=== PATIENT | male | born 1960 | race Caucasian/White ===

== ENCOUNTER 2017-03-20 20:40 | Emergency (ER) | payer BC ==
[2017-03-20 20:44] VITALS: BMI 33.5
--- NOTE | 2017-03-20 20:53 | PDOC ---
History of Present Illness <Aziza White - Last Filed: 03/20/17 22:31> - General History Source: Patient, Old Records, Primary Care Provider Exam Limitations: No Limitations - History of Present Illness Initial Comments: 03/20/17 21:42 The patient is a 57 year old male, with a significant past medical history of hypertension, brain aneurysm and intracranial hemorrhage (2008), who presents to the emergency department sent by PCP for evaluation. The patient had been experiencing persistent headaches over the past couple of days, worsening in the past 1-2 days. He reports that he saw his PCP, who ordered a brain MRI. The patient had the brain MRI done today (03/20/2017) which revealed: IMPRESSION: In comparison to a previous MRI study of 06/18/2009, interval development of aneurysmal dilatation of the basilar artery is noted with possible involvement of the vertebral arteries. Due to mass effect associated with this aneurysm, there is extrinsic indentation upon the adjacent vicky. No obvious intracranial hemorrhage is noted. Additional evaluation utilizing CT and possibly CSF analysis may be performed. Interval development of several small chronic left frontoparietal subcortical infarcts is seen. Moderate periventricular and subcortical chronic microvascular ischemic changes are noted which appears somewhat increased since the prior study. Given the results of the brain MRI, the patient was advised to visit the ED for further evaluation. Currently in the ED, the patient denies nausea or vomiting. The patient denies any vision changes or vision deficits. The patient denies any numbness/tingling/weakness. Allergies: None reported. Past Surgical History: None reported. Social History: Former smoker. Reports occasional alcohol consumption. Denies drug use. PCP: Dr. Chester Seymour <Rahel Mcmahon - Last Filed: 03/20/17 22:55> - General Chief Complaint: Headache Stated Complaint: HEADACHE Past History - Past Medical History Anemia: No Asthma: No Cancer: No Cardiac Disorders: No CVA: No COPD: No CHF: No Dementia: No Diabetes: No GI Disorders: No Disorders: No HTN: Yes Hypercholesterolemia: No Liver Disease: No Seizures: No Thyroid Disease: No - Surgical History Abdominal Surgery: No Appendectomy: No Cardiac Surgery: No Cholecystectomy: No Lung Surgery: No Neurologic Surgery: No Orthopedic Surgery: No - Psycho/Social/Smoking Cessation Hx Suicidal Ideation: No Smoking Status: Yes Smoking History: Never smoked Have you smoked in the past 12 months: No Number of Cigarettes Smoked Daily: 1 If you are a former smoker, when did you quit?: 2011 Information on smoking cessation initiated: No Hx Alcohol Use: Yes (SOCIALLY) Drug/Substance Use Hx: No Substance Use Type: Alcohol Hx Substance Use Treatment: No <Aziza White - Last Filed: 03/20/17 22:31> <Rahel Mcmahon - Last Filed: 03/20/17 22:55> - Past Medical History Allergies/Adverse Reactions: Allergies Allergy/AdvReac Type Severity Reaction Status Date / Time No Known Drug Allergies Allergy Verified 03/20/17 20:44 Home Medications: Ambulatory Orders Amlodipine Besylate [Norvasc -] 10 mg PO DAILY 05/27/12 Metoprolol Succinate [Toprol XL -] 25 mg PO BID 05/27/12 Losartan/Hydrochlorothiazide [Losartan-Hctz 100-25 mg Tab] 1 each PO DAILY 05/28 Review of Systems - Review of Systems Able to Perform ROS?: Yes Comments:: 03/20/17 21:39 CONSTITUTIONAL: Absent: fever, no chills, no fatigue EYES: Absent: visual changes ENT: Absent: ear pain, no sore throat CARDIOVASCULAR: Absent: chest pain, no palpitations RESPIRATORY: Absent: cough, no SOB GI: Absent: abdominal pain, no nausea, no vomiting, no constipation, no diarrhea GENITOURINARY: Absent: dysuria, no frequency, no hematuria MUSCULOSKELETAL: Absent: back pain, no arthralgia, no myalgia SKIN: Absent: rash NEURO: Present: +Headache <Rahel Mcmahon - Last Filed: 03/20/17 22:55> *Physical Exam - Vital Signs Last Vital Signs Temp Pulse Resp BP Pulse Ox 98 F 72 18 197/117 98 03/20/17 20:42 03/20/17 20:42 03/20/17 20:42 03/20/17 20:42 03/20/17 20:42 <Aziza White - Last Filed: 03/20/17 22:31> - Vital Signs Last Vital Signs Temp Pulse Resp BP Pulse Ox 98 F 72 18 197/117 98 03/20/17 20:42 03/20/17 20:42 03/20/17 20:42 03/20/17 20:42 03/20/17 20:42 - Physical Exam Comments: 03/20/17 21:40 GENERAL: Well-appearing, well-nourished. No apparent distress. HEENT: Normocephalic, atraumatic. PERRL, EOM intact. CARDIOVASCULAR: Normal S1, S2. Regular rate and rhythm. PULMONARY: Clear to auscultation bilaterally. ABDOMEN: Soft, non-distended, non-tender. EXTREMITIES: Normal ROM in all four extremities. No gross deformities. SKIN: Warm, dry. No rash. NEUROLOGICAL: AAO x 3. Motor strength is 5/5 in both the upper and lower extremities bilaterally. No pronator drift. No ataxia. No facial droop. No visual field cuts, no diplopia or visual deficits. No focal neurological deficits. <Rahel Mcmahon - Last Filed: 03/20/17 22:55> ED Treatment Course - LABORATORY CBC & Chemistry Diagram: 03/20/17 21:10 03/20/17 21:10 <Aziza White - Last Filed: 03/20/17 22:31> - LABORATORY CBC & Chemistry Diagram: 03/20/17 21:10 03/20/17 21:10 - ADDITIONAL ORDERS Additional order review: 03/20/17 21:10 RBC 5.45 MCV 85.8 MCHC 33.4 RDW 13.8 MPV 8.6 Neutrophils % 62.6 Lymphocytes % 29.8 Monocytes % 4.8 Eosinophils % 1.5 Basophils % 1.3 - Medications Given in the ED: ED Medications Discontinued Medications Generic Name Dose Route Start Last Admin Trade Name Katelyn PRN Reason Stop Dose Admin Acetaminophen 1,000 mg 03/20/17 21:10 03/20/17 21:13 Ofirmev Injection - IVPB 03/20/17 21:11 1,000 mg ONCE ONE Administration <Rahel Mcmahon - Last Filed: 03/20/17 22:55> Medical Decision Making - Medical Decision Making 03/20/17 20:56 I received a call from Dr. 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 The maximum aneurysmal diameter is 1.3 cm. 03/20/17 22:28 67-year-old male who has had increasing headaches for the past 2 days and has a history of prior aneurysm that was coiled in 2008. Family states that he has long-standing uncontrolled hypertension and takes 3 medications for it. Today he went to see Dr. Harkins, who ordered an MRI that did show a basilar aneurysm. Patient came in alert and oriented 3 ambulating. His NIH stroke scale is actually 0. He does have some weakness with fine motor skills and some difficulties signing his name. Since his stroke in 200803/20/17 22:31 The patient was transferred to [facility] after I got Dr. Varinder Pulido on the phone. He was already aware of the patient because he was spoken to the primary care physician. We discussed the lab results and the fact that the patient had a troponin that was +0.17. The patient did not complain of any chest pain or shortness of breath. EKG did show normal sinus rhythm at 63 with some LVH and an old infarct, inferior. There is no evidence of an acute STEMI. Patient's blood pressure has been elevated with systolic of 207, and I discussed this with Dr. Pulido was agreed to give the patient labetalol. he received IV labetalol and has been transferred [facility]. <Aziza White - Last Filed: 03/20/17 22:31> *DC/Admit/Observation/Transfer <Aziza White - Last Filed: 03/20/17 22:31> - Attestations Scribe Attestion: 03/20/17 21:24 Documentation prepared by Rahel Mcmahon, acting as medical intern for Aziza White MD. <Rahel Mcmahon - Last Filed: 03/20/17 22:55> Diagnosis at time of Disposition: Magnetic resonance imaging of brain abnormal - Discharge Dispostion Disposition: TRANSFER ACUTE CARE/OTHER HOSP Condition at time of disposition: Stable - Referrals Referrals: Chester Seymour MD [Primary Care Provider] -
[2017-03-20] MEDS ORDERED: ACETAMINOPHEN 1000 MG/100 ML VIAL (NON FORMULARY) IVPB ONE (21:10)
[2017-03-20] MEDS ORDERED: ACETAMINOPHEN INJECTION 100 ML IVPB ONE (21:12)
[2017-03-20 21:18] LABS: BASOPHIL 1.3 % (0-2.0); EOSINOPHIL 1.5 % (0-4.5); MCH 28.7 pg (25.7-33.7); MCHC 33.4 g/dl (32.0-35.9); MEAN CELL VOLUME 85.8 fl (80-96); MEAN PLT VOLUME 8.6 fl (7.5-11.1); NEUTROPHILS 62.6 % (42.8-82.8); PLATELET COUNT 305 K/MM3 (134-434); RDW 13.8 % (11.9-15.9); WHITE BLOOD COUNT 11.5 K/mm3 (4.0-10.0)
[2017-03-20 21:30] LABS: INR 0.98 (0.82-1.09); PROTHROMBIN TIME (PATIENT) 10.8 SEC (9.98-11.88)
[2017-03-20 21:40] LABS: ALBUMIN 3.9 g/dl (3.4-5.0); ANION GAP 9 (8-16); BILIRUBIN,TOTAL 0.9 mg/dL (0.2-1.0); CO2 27 mmol/L (21-32); GLUCOSE,RANDOM 153 mg/dL (74-106); SGOT/AST 36 U/L (15-37); SGPT/ALT 47 U/L (12-78)
[2017-03-20 21:42] LABS: ALK PHOS 98 U/L (45-117); CPK 116 IU/L (39-308); TROPONIN I 0.17 ng/ml (0.00-0.05)
[2017-03-20] MEDS ORDERED: LABETALOL HCL 5 MG/1 ML (100MG/20 ML VIAL) IVPUSH ONE (22:07)
[2017-03-20 22:14] VITALS: PULSE 64
[2017-03-20 22:33] VITALS: BP 193/100; TEMP 98.2
--- NOTE | 2017-03-21 11:39 | EKG ---
Test Reason : Blood Pressure : / mmHG Vent. Rate : 063 BPM Atrial Rate : 063 BPM P-R Int : 198 ms QRS Dur : 094 ms QT Int : 446 ms P-R-T Axes : 044 -31 101 degrees QTc Int : 456 ms NORMAL SINUS RHYTHM LEFT AXIS DEVIATION MINIMAL VOLTAGE CRITERIA FOR LVH, MAY BE NORMAL VARIANT INFERIOR INFARCT (CITED ON OR BEFORE 26-MAR-2012) T WAVE ABNORMALITY, CONSIDER LATERAL ISCHEMIA ABNORMAL ECG WHEN COMPARED WITH ECG OF 26-MAR-2012 08:54, NO SIGNIFICANT CHANGE WAS FOUND Confirmed by YANETH ERWIN, VANE ([id number]) on 03/21/2017 11:38:39 AM Referred By: Confirmed By:VANE WLOFE MD
== END 2017-03-20 22:30 | disposition short-term general hospital (02) ==
LOC: JER 20:40
PROC: 3E033NZ Introduction of Analgesics, Hypnotics, Sedatives into Peripheral Vein, Percutaneous Approach (ICD-10-PCS; principal; 2017-03-20)
PROC: 3E033GC Introduction of Other Therapeutic Substance into Peripheral Vein, Percutaneous Approach (ICD-10-PCS; 2017-03-20)
DX: I72.5 Aneurysm of other precerebral arteries (principal); Z86.73 Personal history of transient ischemic attack (TIA), and cerebral infarction without residual deficits; I10 Essential (primary) hypertension
CPT/HCPCS: 36415; 80053; 84484; 85025; 85610; 86850; 86900; 86901; 93005; 93010; 99284-25

== ENCOUNTER 2017-07-18 12:19 | Emergency (ER) | payer BC ==
--- NOTE | 2017-07-18 12:29 | PDOC ---
Attending Attestation - Resident Resident Name: Rufino Phillip - ED Attending Attestation I have performed the following: I have examined & evaluated the patient, The case was reviewed & discussed with the resident, I agree w/resident's findings & plan, Exceptions are as noted - HPI HPI: 07/18/17 12:27 Last Known Well 11:30A [Code Pandya] Hx of Brain Aneurysm - Physicial Exam PE: 07/18/17 12:28 VSS HYPERTENSIVE 07/18/17 12:29 CODE PANDYA INITIATED 07/18/17 12:40 Right Sided Deficits - Medical Decision Making 07/20/17 16:05 Previous vascular problems posterior circulation presenting with anterior circulation signs and symptoms ct without bleed transfer for higher level of care as TPA is contraindicated
[2017-07-18] MEDS ORDERED: ASPIRIN 325 MG TABLET PO ONE (12:38)
[2017-07-18] MEDS ORDERED: SODIUM CHLORIDE 1,000 ML IV SCH (12:45)
[2017-07-18 13:13] VITALS: TEMP 98.1; BMI 29.9
--- NOTE | 2017-07-18 13:29 | PDOC ---
History of Present Illness - General Chief Complaint: Paralysis Stated Complaint: HYPERTENSION Time Seen by Provider: 07/18/17 12:23 History Source: Patient - History of Present Illness Initial Comments: 07/18/17 14:38 57M with hx of HTN, [place] aortic aneurism, brain aneurysm and intracranial hemorrhage (2008), and double vertebral/basilar artery aneurisms presents to the ED with acute paralysis of the right face and right side of body with increase in speech difficulty. Last seen normal at 11:30am. Patient arrived to the Ed agitated, hypertensive with systolic pressure in the 200's. Back in february, the patient had been experiencing persistent headaches and a brain MRI done on 03/20/2017 which showed: * IMPRESSION: In comparison to a previous MRI study of 06/18/2009, interval development of aneurysmal dilatation of the basilar artery is noted with possible involvement of the vertebral arteries. Due to mass effect associated with this aneurysm, there is extrinsic indentation upon the adjacent vicky. No obvious intracranial hemorrhage is noted. Additional evaluation utilizing CT and possibly CSF analysis may be performed. Interval development of several small chronic left frontoparietal subcortical infarcts is seen. Moderate periventricular and subcortical chronic microvascular ischemic changes are noted which appears somewhat increased since the prior study. 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 Patient's sisters present in the ED. 07/21/17 10:04 Past History - Past Medical History Allergies/Adverse Reactions: Allergies Allergy/AdvReac Type Severity Reaction Status Date / Time No Known Drug Allergies Allergy Verified 03/20/17 20:44 Home Medications: Ambulatory Orders Amlodipine Besylate [Norvasc -] 10 mg PO DAILY 05/27/12 Metoprolol Succinate [Toprol XL -] 25 mg PO BID 05/27/12 Losartan/Hydrochlorothiazide [Losartan-Hctz 100-25 mg Tab] 1 each PO DAILY 05/28 Anemia: No Asthma: No Cancer: No Cardiac Disorders: No CVA: Yes COPD: No CHF: No Dementia: No Diabetes: No GI Disorders: No Disorders: No HTN: Yes Hypercholesterolemia: No Liver Disease: No Seizures: No Thyroid Disease: Yes (Brain Aneurysm) - Surgical History Abdominal Surgery: No Appendectomy: No Cardiac Surgery: No Cholecystectomy: No Lung Surgery: No Neurologic Surgery: No Orthopedic Surgery: No - Suicide/Smoking/Psychosocial Hx Smoking Status: Yes Smoking History: Former smoker Have you smoked in the past 12 months: No Number of Cigarettes Smoked Daily: 1 If you are a former smoker, when did you quit?: 2011 Information on smoking cessation initiated: No Hx Alcohol Use: Yes (SOCIALLY) Drug/Substance Use Hx: No Substance Use Type: Alcohol Hx Substance Use Treatment: No Review of Systems - Review of Systems Able to Perform ROS?: Yes Is the patient limited Telugu proficient: No Constitutional: No: Symptoms Reported HEENTM: No: Symptoms Reported Respiratory: No: Symptoms reported Cardiac (ROS): No: Symptoms Reported ABD/GI: No: Symptoms Reported : No: Symptoms Reported Musculoskeletal: No: Symptoms Reported Integumentary: No: Symptoms Reported Neurological: Yes: See HPI Psychiatric: No: Anxiety Endocrine: No: Symptoms Reported Hematologic/Lymphatic: No: Symptoms Reported All Other Systems: Reviewed and Negative *Physical Exam - Vital Signs Last Vital Signs Temp Pulse Resp BP Pulse Ox 98.1 F 78 18 138/115 96 07/18/17 13:08 07/18/17 13:08 07/18/17 13:08 07/18/17 13:08 07/18/17 13:08 - Physical Exam General Appearance: Yes: Nourished, Appropriately Dressed, Severe Distress HEENT: positive: EOMI, AQUILES, Normal ENT Inspection Neck: positive: Trachea midline. negative: Tender Respiratory/Chest: positive: Lungs Clear, Normal Breath Sounds. negative: Chest Tender Cardiovascular: positive: Regular Rhythm, Regular Rate, S1, S2 Gastrointestinal/Abdominal: positive: Normal Bowel Sounds, Flat, Soft. negative : Tender Musculoskeletal: positive: Normal Inspection. negative: CVA Tenderness Neurologic: positive: Alert, Facial Droop. negative: lodging facilities attendant II-XII NML intact, Motor Strength 5/5 NIH Stroke Scale - Last Known Well Date/Time & Onset Date Last Known Well: 07/18/17 Time Last Known Well: 11:30 - Initial Evaluation Level of consciousness: Alert Ask patient the month and their age: Answers one correctly Ask patient to open & close eyes; make fist and let go: Obeys both correctly Best gaze (horizontal eye movement): Normal Visual field testing: No visual field loss Facial paresis (Show teeth/raise eyebrows/close eyes tight): Partial paralysis ( total or near paralysis of lower face) Motor Function: Left Arm: Normal Motor Function: Right Arm: Some effort against gravity Motor Function: Left Leg: Normal (extends leg 30 degrees for 5 seconds without drift) Motor Function: Right Leg: No effort against gravity Limb Ataxia: Present in two limbs Sensory(Use pinprick test arms,legs,trunk,face/side to side): Mild to moderate decrease in sensation Best language (Describe picture, name items, read sentences): Mild to moderate aphasia Dysarthria (read several words): Near unintelligible or unable to speak Extinction and Inattention: No abnormality - Total Score NIH Stroke Scale Score: 14 Critical Care Time/MDM Note - Medical Decision Making Note: 07/18/17 14:37 57M with pmh of hemorrhagic intracranial bleed in 2008 and aneurism of the basial artiryx2 in March corrected with clips in [place] presents here today with "Extensive periventricular chronic microvascular ischemic changes. No gross acute infarct is identified. Aneurysmal dilatation of the distal left vertebral artery again seen measuring 9 mm in diameter with increased attenuation suggestive of thrombosis. There is also unusual dilatation at the junction of the distal right vertebral artery and the basilar artery measuring 1.2 cm in diameter with increased attenuation, posteriorly suggestive of acute disease partial thrombosis and much less likely an adjacent extra-axial focus of acute hemorrhage. Further evaluation with MRI of the brain as well as pre and postcontrast MRA of the brain or CT angiogram of the brain including the upper neck is recommended." 07/21/17 07:45 Patient transfered to [facility], CODE BRAIN activated. TPA not administred due to h/o intracranial bleed in 2008. 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 Geoffrey Hartley Transfer comment: 07/18/17 15:10 CODE BRAIN
[2017-07-18 13:30] LABS: BASO # 0.1 #; BASO % 0.7 % (0-2.0); EOS % 0.4 % (0-4.5); LYMPH # 2.2; MCH 29.7 pg (25.7-33.7); MCHC 32.6 g/dl (32.0-35.9); MEAN CELL VOLUME 91.1 fl (80-96); MONO # 0.4 #; NEUT # 5.9 #; NEUT % 68.1 % (42.8-82.8); PLATELET COUNT 259 K/MM3 (134-434); RDW 13.2 % (11.9-15.9); WHITE BLOOD COUNT 8.6 K/mm3 (4.0-10.0)
[2017-07-18 14:05] LABS: ALBUMIN 3.8 g/dl (3.4-5.0); ALK PHOS 84 U/L (45-117); ANION GAP 18 (8-16); BILIRUBIN,TOTAL 0.7 mg/dL (0.2-1.0); CALCIUM 9.2 mg/dL (8.5-10.1); CO2 16 mmol/L (21-32); CPK 93 IU/L (39-308); CREATININE 1.3 mg/dL (0.7-1.3); SGOT/AST 23 U/L (15-37); SGPT/ALT 32 U/L (12-78); TOT PROT 6.9 g/dl (6.4-8.2); TROPONIN I 0.17 ng/ml (0.00-0.05)
[2017-07-18 14:13] LABS: GLUCOSE,RANDOM 476 mg/dL (74-106)
[2017-07-18 14:26] VITALS: BP 138/112; PULSE 88
[2017-07-18 15:23] LABS: CHOLESTEROL 169 mg/dL (50-200)
[2017-07-18 15:54] LABS: INR 0.95 (0.82-1.09); PROTHROMBIN TIME (PATIENT) 10.7 SEC (9.98-11.88)
--- NOTE | 2017-07-19 13:07 | EKG ---
Test Reason : Blood Pressure : / mmHG Vent. Rate : 091 BPM Atrial Rate : 091 BPM P-R Int : 190 ms QRS Dur : 092 ms QT Int : 376 ms P-R-T Axes : 050 -36 072 degrees QTc Int : 462 ms NORMAL SINUS RHYTHM LEFT AXIS DEVIATION INFERIOR INFARCT (CITED ON OR BEFORE 26-MAR-2012) ABNORMAL ECG WHEN COMPARED WITH ECG OF 20-MAR-2017 21:24, T WAVE INVERSION NO LONGER EVIDENT IN LATERAL LEADS Confirmed by CHETAN MORGAN MD ([id number]) on 07/19/2017 1:07:21 PM Referred By: Confirmed By:CHETAN MORGAN MD
== END 2017-07-18 14:50 | disposition short-term general hospital (02) ==
LOC: JER 12:19
DX: I65.02 Occlusion and stenosis of left vertebral artery (principal); I10 Essential (primary) hypertension; Z87.891 Personal history of nicotine dependence; Z86.79 Personal history of other diseases of the circulatory system
CPT/HCPCS: 36415; 70450-TC; 70496-TC; 70498-TC; 80053; 82465; 82550; 84478; 84484; 85025; 85610; 86850; 86900; 86901; 93005; 93010; 99285-25